=== PATIENT | male | born 1980 ===

== ENCOUNTER 2020-09-09 06:55 | Day surgery (SDC) | payer OTHER ==
[~2020-09-09 06:55] MED LIST: GABAPENTIN800 M1 PO
[2020-09-09] MEDS ORDERED: ULTRACET PO (14:07)
[2020-09-09] MEDS ORDERED: DUI500 PO (14:07)
== END 2020-09-09 17:30 | disposition home or self-care (01) ==
LOC: CIR.AMB 06:55
PROVIDERS: ATTEND Orthopaedic Surgery
DX: S83.232A Complex tear of medial meniscus, current injury, left knee, initial encounter (principal); S83.282A Other tear of lateral meniscus, current injury, left knee, initial encounter; M94.262 Chondromalacia, left knee; M67.362 Transient synovitis, left knee; Z20.822 Contact with and (suspected) exposure to COVID-19